=== PATIENT | male | born 1975 | race Caucasian/White ===

== ENCOUNTER 2017-05-05 19:25 | Emergency (ER) | payer BC ==
[2017-05-05 19:48] VITALS: BP 111/65
[2017-05-05] MEDS ORDERED: ACETAMINOPHEN 325 MG TABLET PO ONE (20:54)
== END 2017-05-05 21:50 | disposition left against medical advice (07) ==
LOC: ER 19:25
DX: Z53.21 Procedure and treatment not carried out due to patient leaving prior to being seen by health care provider (principal)

== ENCOUNTER → 2019-04-22 | Outpatient (CLI) | payer BC ==
--- NOTE | 2019-04-23 15:16 | RADIOLOGY REPORT (SQ) ---
EXAM DESCRIPTION: MRI LUMBAR SPINE WITHOUT COMPLETED DATE/TIME: 04/22/2019 9:56 pm REASON FOR STUDY: M54.5 LOW BACK PAIN M54.5 LOW BACK PAIN COMPARISON: None. TECHNIQUE: Sagittal and Axial imaging includes T1, T2, STIR and gradient echo sequences. Coronal T2/ HASTE imaging. LIMITATIONS: None. FINDINGS: VISUALIZED UPPER ABDOMEN: Limited evaluation. No acute or suspicious findings suggested. SEGMENTATION: No transitional anatomy. The lowest well-developed disc space is labeled L5-S1. ALIGNMENT: Anatomic. VERTEBRAE: Intact. BONE MARROW: Mild endplate edema at L5-S1. DISC SIGNAL: Loss of disc signal and height at L4-5 and L5-S1. POSTERIOR ELEMENTS: Bilateral L5 pars defects. Mild facet arthropathy at L4-5. HARDWARE: None in the spine. CORD AND CONUS: Normal in size and signal intensity. Conus at the appropriate level. SOFT TISSUES: No aortic aneurysm seen. No bulky retroperitoneal adenopathy or mass. No paraspinal mas s or fluid. L1-L2: No significant spinal stenosis or exit foraminal stenosis. L2-L3: No significant spinal stenosis or exit foraminal stenosis. L3-L4: No significant spinal stenosis or exit foraminal stenosis. L4-L5: Mild disc bulge without impingement or stenosis. L5-S1: Mild disc bulge without impingement or stenosis. LOWER THORACIC: Incompletely imaged. No stenosis seen. SACRUM: Visualized upper sacrum intact. OTHER: No other significant findings. IMPRESSION: 1. Spondylosis without overt impingement or stenosis. 2. Bilateral L5 pars defects but no spinal malalignment evident. TECHNICAL DOCUMENTATION: JOB ID: [id number] [employer]- All Rights Reserved Reading location - IP/workstation name: [email or web address]
== END ==
LOC: RAD 19:20
PROVIDERS: ATTEND Physician Assistant
DX: M54.5 Low back pain (principal); M47.896 Other spondylosis, lumbar region
CPT/HCPCS: 72148

== ENCOUNTER → 2019-08-16 | Outpatient (CLI) | payer BC ==
--- NOTE | 2019-08-16 10:42 | RADIOLOGY REPORT (SQ) ---
EXAM DESCRIPTION: CHEST PA/LATERAL COMPLETED DATE/TIME: 08/16/2019 10:31 am REASON FOR STUDY: PRE-OP COMPARISON: 06/18/2016 EXAM PARAMETERS: NUMBER OF VIEWS: two views TECHNIQUE: Digital Frontal and Lateral radiographic views of the chest acquired. RADIATION DOSE: NA LIMITATIONS: none FINDINGS: LUNGS AND PLEURA: No opacities, masses or pneumothorax. No pleural effusion. MEDIASTINUM AND HILAR STRUCTURES: No masses or contour abnormalities. HEART AND VASCULAR STRUCTURES: Heart normal size. No evidence for failure. BONES: No acute findings. HARDWARE: None in the chest. OTHER: No other significant finding. IMPRESSION: NO SIGNIFICANT RADIOGRAPHIC FINDING IN THE CHEST. TECHNICAL DOCUMENTATION: JOB ID: [id number] [employer]- All Rights Reserved Reading location - IP/workstation name: [email or web address]
[2019-08-16 11:00] LABS: HEMATOCRIT 45.8 % (37.9-51.0); HEMOGLOBIN 16.3 g/dL (13.5-17.0); MEAN CORPUSCULAR HEMOGLOBIN 33.4 pg (27.0-33.4); MEAN CORPUSCULAR HGB CONC 35.6 g/dL (32.0-36.0); MEAN CORPUSCULAR VOLUME 94 fl (80-97); PLATELET COUNT 301 10^3/uL (150-450); RED BLOOD COUNT 4.88 10^6/uL (4.35-5.55); WHITE BLOOD COUNT 8.2 10^3/uL (4.0-10.5)
[2019-08-16 11:32] LABS: ANION GAP 12 (5-19); BLOOD UREA NITROGEN 18 mg/dL (7-20); CALCIUM 9.9 mg/dL (8.4-10.2); CARBON DIOXIDE 25 mmol/L (22-30); CHLORIDE 106 mmol/L (98-107); GLUCOSE 91 mg/dL (75-110); POTASSIUM 4.2 mmol/L (3.6-5.0)
--- NOTE | 2019-08-16 14:31 | EKG REPORT ---
SEVERITY:- NORMAL ECG - SINUS RHYTHM : Confirmed by: Nona Hidalgo MD 16-Aug-2019 14:29:53
== END ==
LOC: OD 09:55
PROVIDERS: ATTEND Surgery
DX: Z01.818 Encounter for other preprocedural examination (principal); K40.90 Unilateral inguinal hernia, without obstruction or gangrene, not specified as recurrent; K42.9 Umbilical hernia without obstruction or gangrene; T14.8XXA Other injury of unspecified body region, initial encounter; X58.XXXA Exposure to other specified factors, initial encounter; R05 Cough
CPT/HCPCS: 36415; 71046; 80048; 85027; 93005; 93010

== ENCOUNTER 2019-08-26 06:52 | Day surgery (SDC) | payer BC ==
[~2019-08-26 06:52] MED LIST: ACETAMINOPHEN 325 MG TABLET PO PRN; CEFAZOLIN SODIUM 2 GM in DEXTROSE 5%-WATER 100 ML IV PRN; DEXAMETHASONE SOD PHOSPHATE INJ 4 MG/1 ML VIAL ONE; IBUPROFEN 800 MG in NORMAL SALINE 250 ML IV PRN; LACTATED RINGERS 1000 ML IV PRN; LIDOCAINE 0.5% INJ-PF (5 MG/ML) 50 ML SDV SUBCUT PRN; ONDANSETRON HCL INJ/PF 4 MG/2 ML SDV ONE; PREGABALIN 50 MG CAPSULE PO PRN; RINGERS SOLUTION,LACTATED 1,000 ML IV PRN; ROCURONIUM BROMIDE INJ 50 MG/5 ML VIAL IV ONE
[2019-08-26] MEDS ORDERED: BUPIVACAINE HCL 0.25 % INJ/PF (2.5 MG/1 ML) 30 ML VIAL ONE (07:05)
[2019-08-26] MEDS ORDERED: PREGABALIN 50 MG CAPSULE ONE (07:14)
[2019-08-26] MEDS ORDERED: ACETAMINOPHEN 325 MG TABLET ONE (07:14)
[2019-08-26] MEDS ORDERED: MIDAZOLAM 2 MG/2 ML INJ ONE (09:53)
[2019-08-26] MEDS ORDERED: FENTANYL CITRATE INJ/PF 250 MCG/5 ML AMPULE ONE (09:53)
[2019-08-26] MEDS ORDERED: MORPHINE SULFATE 10 MG/ML INJ ONE (09:54)
[2019-08-26] MEDS ORDERED: PROPOFOL INJ 200 MG/20 ML VIAL IV ONE (09:54)
[2019-08-26] MEDS ORDERED: MEPERIDINE HCL/PF INJ 25 MG/1 ML DISP.SYRIN IV PRN (10:49)
[2019-08-26] MEDS ORDERED: FENTANYL CITRATE INJ/PF 100 MCG/2 ML AMPUL IV PRN ×3 (10:49)
[2019-08-26] MEDS ORDERED: DIPHENHYDRAMINE HCL 50 MG/ML VIAL IV PRN (10:49)
[2019-08-26] MEDS ORDERED: MORPHINE SULFATE 10 MG/ML INJ IV PRN (10:49)
[2019-08-26] MEDS ORDERED: PROMETHAZINE HCL INJ 25 MG/1 ML VIAL IV PRN ×2 (10:49)
[2019-08-26] MEDS ORDERED: HYDROCODONE/ACETAMINOPHEN 10-325 MG TABLET ONE (13:04)
[2019-08-26 15:53] VITALS: BP 131/82
--- NOTE | 2019-08-29 14:48 | Discharge Summary ---
Discharge Summary (SDC) - Discharge Final Diagnosis: Symptomatic left inguinal hernia, symptomatic umbilical hernia Date of Surgery: 08/26/19 Discharge Date: 08/26/19 Condition: Stable Forms: ASU Anesthesia D/C Instruction, Discharge POC-Surgical Service Treatment or Instructions: NO DRIVING, ALCOHOL, OR LEGAL DECISIONS FOR THE NEXT 24 HOURS. NO LIFTING OVER 10 POUNDS FOR 6 WEEKS. MAY SHOWER ON THURSDAY. NO TUB BATHS FOR 2 WEEKS. MAY USE A STOOL SOFTENER OF YOUR CHOICE. KEEP YOUR FOLLOW-UP APPOINTMENT. REVIEW YOUR DISCHARGE PAPERWORK. Discharge home. Diet as tolerated. Activity: No lifting greater than 10 pounds x 6 weeks. Follow-up with me in 7 to 10 days. [place] 10/325 mg p.o. every 6 hours as needed for pain. Okay to shower starting Thursday. Referrals: DAHLIA CADE MD [ACTIVE STAFF] - 09/06/19 11:00 am Discharge Diet: As Tolerated Respiratory Treatments at Home: Deep Breathing/Coughing, Incentive Spirometer Discharge Activity: Balance Activity w/Rest, No Driving, No Lifting Over 10 Pounds, No Lifting/Push/Pulling, No tub bath Home Care Assistance: None Needed Report the Following to Your Physician Immediately: Shortness of Breath, Increase in Pain, Fever over 101 Degrees, Unusual Bleeding, Redness, Drainage-F oul Smelling, Urinary Infection Signs
--- NOTE | 2019-08-29 15:22 | Operative Report ---
Nonrecallable Operative Report DATE OF SURGERY: 08/26/19 PREOPERATIVE DIAGNOSIS: 1. Symptomatic left inguinal hernia. 2. Symptomatic umbilical hernia. POSTOPERATIVE DIAGNOSIS: Same as above OPERATION: 1. Robot-assisted laparoscopic left inguinal hernia repair with mes h. 2. Open primary suture repair of umbilical hernia (no mesh) SURGEON: DAHLIA CADE ANESTHESIA: GA TISSUE REMOVED OR ALTERED: None COMPLICATIONS: None apparent ESTIMATED BLOOD LOSS: Minimal PROCEDURE: Drains/implants: Large left 3 DMax inguinal hernia mesh. Procedure in detail: After informed consent was obtained, the patient was brought to the operating room and laid in the supine position. The area of the abdomen was prepped and draped in a normal sterile fashion. A curvilinear supraumbilical incision was created. Dissection was carried down to the fascia using sharp and blunt dissection. The cicatrix was encircled, retracted upwards, and divided at its base. This opened the hernia sac, revealing a small (less than 5 mm) umbilical hernia with incarcerated fat. The fat was reduced back into the abdomen. The fascia was then incised large enough to permit insertion of the balloon trocar. Gas insufflation was attached, and pneumoperitoneum was achieved. 2 8 mm robotic trochars were then placed in the right and left lateral abdominal wall. The robot was brought over the patient and docked appropriately. Attention was turned to the left groin. Incision was created in the peritoneum 3 cm superior to the left indirect inguinal hernia defect. Dissection was carried out in the preperitoneal space. The hernia sac was freed from the cord structures. A large lipoma of the cord was reduced. Great care was taken not to injure the cord structures during this maneuver. Next, a large left-sided 3 DMax inguinal hernia mesh was placed into the preperitoneal space. It was sutured medially and superiorly using 2-0 Vicryl suture. The peritoneum was then closed using 20V lock suture in simple running fashion. Once the repair was completed, it was inspected. The repair appeared to be in good order. The robot was then undocked, and I scrubbed back into the case. The trochars were removed, and pneumoperitoneum was relieved. At the umbilical hernia site, the defect was not large enough to require an umbilical hernia mesh. 0 Prolene suture was then used to close the defect in an overlapping [id number] fashion. The cicatrix was reattached to the fascia using 0 Vicryl suture. The subcutaneous tissues were closed using 0 Vicryl suture. The overlying skin was closed using 4-0 Vicryl Rapide suture in subcuticular fashion. Dressings were placed, and the procedure was concluded. All sponge, instrument, and needle counts were correct x2. Condition: Stable.
== END 2019-08-26 14:50 | disposition home or self-care (01) ==
LOC: OROUT 06:52
PROVIDERS: ATTEND Surgery
DX: K42.9 Umbilical hernia without obstruction or gangrene (principal); K40.90 Unilateral inguinal hernia, without obstruction or gangrene, not specified as recurrent; Z88.5 Allergy status to narcotic agent; Z79.899 Other long term (current) drug therapy
CPT/HCPCS: 49585; 49650; S2900; 840; C1781; J0690; J1100; J1741; J2250; J2270; J2405; J2704; J3010; J3490; J7050; J7060